=== PATIENT | male | born 1995 | race Caucasian/White ===

== ENCOUNTER 2017-08-27 14:05 | Observation (INO) | payer MEDICAID, OTHER ==
[2017-08-27] MEDS ORDERED: NS 0.9% 1000 ML* 1,000 ML IV ONE (14:12)
[2017-08-27] MEDS ORDERED: Multivitamins/Minerals TAB PO ONE (14:12)
[2017-08-27 15:12] LABS: ABS Basophils 0 10^3/ul (0-0.2); ABS Eosinophils 0.6 10^3/ul (0-0.6); ABS Lymphocytes 2.3 10^3/ul (1.0-4.8); ABS Monocytes 1.1 10^3/ul (0-0.8); ABS Neutrophils 5.7 10^3/ul (1.5-7.7); ABS Nucleated RBC 0.01 10^3/ul; Eosinophil % 6.4 % (0-6); Hematocrit 45 % (42-52); Hemoglobin 16.6 g/dl (14.0-18.0); Lymphocyte % 23.8 % (25-47); Mean Corpuscular HGB Conc 37 g/dl (31-36); Mean Corpuscular Hemoglobin 33 pg (27-31); Mean Corpuscular Volume 88 fL (80-94); Mean Platelet Volume 8 um3 (7.4-10.4); Nucleated Red Blood Cells % 0.1; Platelet Count 271 10^3/ul (150-450); Red Blood Count 5.12 10^6/ul (4.0-5.4); Red Cell Distribution Width 13 % (10.5-15); White Blood Count 9.8 10^3/ul (3.5-10.8)
[2017-08-27 15:22] LABS: EGFR Non-African American 84.9 (>60)
[2017-08-27] MEDS ORDERED: Potassium Chlor TAB* 20 MEQ TAB.ER PO ONE (15:43)
[2017-08-27] MEDS ORDERED: Magnesium Chloride EC TAB* 64 MG PO ONE (15:44)
[2017-08-27] MEDS ORDERED: POTASSIUM CHLORIDE IVPB SCH (16:00)
[2017-08-27] MEDS ORDERED: POTASSIUM CHLORIDE IVPB ONE (16:00)
[2017-08-27] MEDS ORDERED: NS 0.9% IVPB ONE (16:00)
[2017-08-27] MEDS ORDERED: NS 0.9% IVPB SCH (16:00)
[2017-08-27] MEDS ORDERED: KCL 20 MEQ/100 ML IVPREMIX* 20 MEQ/100 ML BAG IV SCH (16:00)
--- NOTE | 2017-08-27 16:43 | ED ---
Yoselin Castro Gabriel, scribed for Brandon Garrido MD on 08/27/17 at 1427 . Palpitations / Dysrhythmia - HPI Summary HPI Summary: This patient is a 22 year old M BIBA to [facility] with a chief complaint of palpitations/CP since a month ago. Symptoms aggravated by exertion. Patient lives [facility] and was sent for palpitations today after they discovered he is also bulimic. He induces vomiting after every meal and has been doing it for years. He has been hospitalized previously for low electrolytes due to the constant vomiting. He was placed in [facility] for alcohol abuse and heroin abuse but has been sober for 3 months. - History of Current Complaint Time Seen by Provider: 08/27/17 14:10 Onset/Duration: Lasting Weeks - 4, Still Present Timing: Intermittent Episodes Lasting: Severity Initially: Mild Severity Currently: None Character: Irregular, Skipped Beats Aggravating: Exertion Alleviating: Rest Associated Signs & Symptoms: Chest Pain - Allergy/Home Medications Allergies/Adverse Reactions: Allergies Allergy/AdvReac Type Severity Reaction Status Date / Time No Known Allergies Allergy Verified 01/03/13 08:07 Home Medications: Home Medications Acetaminophen TAB* [Tylenol TAB*] 325 - 650 mg PO Q6H PRN 08/27/17 [History Confirmed 08/27/17] Aspirin TAB* [Aspirin 325 MG TAB*] 325 mg PO DAILY PRN 08/27/17 [History Confirmed 08/27/17] Bismuth Subsalicylate [Peptic Relief] 262 mg PO .[id number] MDD 8 tablets [History Confirmed 08/27/17] Calcium Carbonate CHEW TAB* [Tums*] 500 - 1,000 mg PO DAILY PRN MDD 8 tablets [History Confirmed 08/27/17] Docusate CAP* [Colace Cap*] 100 mg PO BID PRN 08/27/17 [History Confirmed ] Guaifenesin 400 - 800 mg PO Q12HR PRN 08/27/17 [History Confirmed 08/27/17] Ibuprofen TAB* [Advil TAB*] 200 mg PO Q6H PRN 08/27/17 [History Confirmed ] Magnesium Hydroxide LIQ* [Milk of Magnesia LIQ*] 30 ml PO DAILY PRN 08/27/17 [ History Confirmed 08/27/17] Melatonin (NF) 5 mg PO BEDTIME PRN 08/27/17 [History Confirmed 08/27/17] Multivitamins/Minerals TAB* [Theragran/minerals TAB*] 1 tab PO DAILY PRN [History Confirmed 08/27/17] Nicotine Lozenge* 1 mg MT TID PRN 08/27/17 [History Confirmed 08/27/17] Polyethylene Glycol 3350* [Miralax*] 17 gm PO DAILY PRN 08/27/17 [History Confirmed 08/27/17] diPHENhydraMINE PO* [Benadryl PO 25 MG TAB*] 25 - 50 mg PO .Q4-6H PRN 08/27/17 [ History Confirmed 08/27/17] PMH/Surg Hx/FS Hx/Imm Hx Previously Healthy: No Endocrine/Hematology History: Denies: Hx Diabetes Cardiovascular History: Denies: Hx Hypertension Respiratory History: Denies: Hx Asthma GI History: Reports: Other GI Disorders - bulimia Opthamlomology History: Denies: Hx Cataracts, Hx Contacts or Glasses, Hx Eye Injury, Hx Legally Blind EENT History: Denies: Hx Deafness, Hx Hearing Problem Neurological History: Denies: Hx Transient Ischemic Attacks (TIA) Psychiatric History: Denies: Hx of Violent Episodes Against Others - denies - Surgical History Surgery Procedure, Year, and Place: tonsillectomy 1996 - Family History Known Family History: Negative: Cardiac Disease, Hypertension, Diabetes, Seizure Disorder, Blood Disorder - Social History Lives: [facility] Alcohol Use: None Alcohol Amount: released from detox on Friday Hx Substance Use: Yes Substance Use Type: Reports: Heroin, Marijuana Smoking Status (MU): Smoker, Current Status Unknown Review of Systems Positive: Palpitations, Chest Pain Positive: Other - bulimic Negative: Slurred Speech All Other Systems Reviewed And Are Negative: Yes Physical Exam - Summary Physical Exam Summary: Appearance: Well appearing, no pain distress Skin: warm, dry, reflects adequate perfusion Head/face: normal Eyes: EOMI, GLENN ENT: normal Mucous membranes moist, no thyromegaly Neck: supple, non-tender Respiratory: CTA, breath sounds present Cardiovascular: RRR, pulses symmetrical Abdomen: non-tender, soft Bowel: present Musculoskeletal: normal, strength/ROM intact, Scars on both upper extremities Neuro: normal, sensory motor intact, A&Ox3 Triage Information Reviewed: Yes Vital Signs On Initial Exam: Initial Vitals BP 118/62 08/27/17 14:14 Vital Signs Reviewed: Yes Procedures - Procedure Summary Procedure Summary: Insertion of Right External Jugular IV: I placed a R EJ 20g angiocatheter after peripheral access was difficult due to IV drug use hx. Single attempt with pt in Trendelenberg position. Flush/jose armando easily. Secured with Tegaderm. Luzma well without complications. Diagnostics - Vital Signs Vital Signs Temp Pulse Resp BP Pulse Ox 08/27/17 16:30 81 14 131/74 98 08/27/17 16:00 14 08/27/17 15:30 117/68 08/27/17 15:00 79 12 95 08/27/17 14:30 80 16 127/71 99 08/27/17 14:19 37.2 C 79 18 118/62 97 08/27/17 14:15 6 08/27/17 14:14 118/62 - Laboratory Lab Results: Lab Results 08/27/17 08/27/17 Range/Units 14:53 14:53 WBC 9.8 (3.5-10.8) 10^3/ul RBC 5.12 (4.0-5.4) 10^6/ul Hgb 16.6 (14.0-18.0) g/dl Hct 45 (42-52) % MCV 88 (80-94) fL MCH 33 H (27-31) pg MCHC 37 H (31-36) g/dl RDW 13 (10.5-15) % Plt Count 271 (150-450) 10^3/ul MPV 8 (7.4-10.4) um3 Neut % (Auto) 57.7 (38-83) % Lymph % (Auto) 23.8 L (25-47) % Dunn % (Auto) 11.7 H (1-9) % Eos % (Auto) 6.4 H (0-6) % Baso % (Auto) 0.4 (0-2) % Absolute Neuts (auto) 5.7 (1.5-7.7) 10^3/ul Absolute Lymphs (auto) 2.3 (1.0-4.8) 10^3/ul Absolute Monos (auto) 1.1 H (0-0.8) 10^3/ul Absolute Eos (auto) 0.6 (0-0.6) 10^3/ul Absolute Basos (auto) 0 (0-0.2) 10^3/ul Absolute Nucleated RBC 0.01 10^3/ul Nucleated RBC % 0.1 Sodium 125 L (133-145) mmol/L Potassium 1.9 L* (3.5-5.0) mmol/L Chloride 68 L (101-111) mmol/L Carbon Dioxide 45 H* (22-32) mmol/L Anion Gap 12 H (2-11) mmol/L BUN 21 (6-24) mg/dL Creatinine 1.07 (0.67-1.17) mg/dL Est GFR ( Amer) 109.2 (>60) Est GFR (Non-Af Amer) 84.9 (>60) BUN/Creatinine Ratio 19.6 (8-20) Glucose 125 H (70-100) mg/dL Calcium 9.8 (8.6-10.3) mg/dL Phosphorus 2.8 (2.5-5.0) mg/dL Magnesium 2.2 (1.9-2.7) mg/dL Total Bilirubin 0.80 (0.2-1.0) mg/dL AST 36 (13-39) U/L ALT 21 (7-52) U/L Alkaline Phosphatase 103 (34-104) U/L Total Protein 7.5 (6.4-8.9) g/dL Albumin 4.4 (3.2-5.2) g/dL Globulin 3.1 (2-4) g/dL Albumin/Globulin Ratio 1.4 (1-3) TSH 0.49 (0.34-5.60) mcIU/mL Result Diagrams: 08/27/17 14:53 08/27/17 14:53 Lab Statement: Any lab studies that have been ordered have been reviewed, and results considered in the medical decision making process. - EKG 1554 Cardiac Rate: NL EKG Rhythm: Sinus Rhythm - at 88 BPM EKG Interpretation: No U waves, prolonged QTc 585 ms, RAD Course/Dx - Course Course Of Treatment: Bulemic with chronic induced vomiting. K+ now critically low. Replace orally and IV. No U waves on EKG. Pt at risk for weakness/ paralysis at this level. Known drug user, placed IV in R EJ for access. Admit for further. - Diagnoses Differential Diagnosis/HQI/PQRI: Positive: Hypokalemia Provider Diagnoses: Bulimia, Palpitations, Hypokalemia, gastrointestinal losses - Critical Care Time Critical Care Time: 30-74 min - CCT is exclusive of separately billable procedures Discharge - Discharge Plan Condition: Fair Disposition: ADMITTED TO [facility] Referrals: No Primary Care Phys,NOPCP [Primary Care Provider] - The documentation as recorded by the Yoselin almeida Gabriel accurately reflects the service I personally performed and the decisions made by , Brandon Garrido MD.
[2017-08-27] MEDS ORDERED: Acetaminophen TAB* 325 MG PO PRN (18:17)
--- NOTE | 2017-08-27 21:38 | HP ---
ADMISSION HISTORY AND PHYSICAL: DATE OF ADMISSION: 08/27/17 ATTENDING PHYSICIAN: Dr. Alexander Talamantes * (DICTATED BY JARAD FISHMAN NP) PRIMARY CARE PHYSICIAN: None. HISTORY OF PRESENT ILLNESS: This is a 22-year-old male patient who presented with a complaint of palpitations via EMS from his [facility] program. The patient states he has had on and off palpitations and chest pain approximately for one month. He is admitted to active bulimia and induced vomiting after every meal. This has been an ongoing problem for him for many years. The patient has been sober for 3 months and has been in his [facility] program for the last 30 days. He has not had any issues, however, he has not confided in his counsellor about his active bulimia issues again, however, he states that he thinks that his counsellor is aware, that people have been telling him that he has been vomiting , but this problem has not been addressed in his treatment at this point. The patient also states that he has had previous hospitalizations for low electrolytes and other gastric issues secondary to his bulimia. Again, the patient has been in [facility] for a month. PAST MEDICAL HISTORY: His past medical history includes polysubstance abuse including alcohol and heroin abuse, however, has been sober for some 90 days now. PAST SURGICAL HISTORY: Tonsillectomy in 1996. ALLERGIES: No known drug allergies. MEDICATIONS: At home, the patient states he does not take any medications on a daily basis, however, his report from [facility] states: 1. Tylenol as needed. 2. Aspirin 325 mg daily. 3. Pepto-Bismol as needed. 4. Calcium carbonate as needed. 5. Docusate caps as needed. 6. Guaifenesin 400 to 800 mg q.12 hours as needed. 7. Ibuprofen as needed. 8. Milk of magnesia as needed. 9. Melatonin p.o. q.h.s. as needed. 10. Multivitamin 1 tablet daily, this he does confirm he takes. 11. Nicotine lozenge 1 tablet 3 times a day as needed. 12. MiraLAX as needed. 13. Benadryl also as needed. SOCIAL HISTORY: Tobacco abuse, heroin abuse, and alcohol abuse. FAMILY HISTORY: Noncontributory. PSYCHIATRIC HISTORY: Active bulimia, probably some comorbid depression, although this is not currently corroborated. Again, living in a [facility] in [facility] program. REVIEW OF SYSTEMS: The patient denies any fever, fatigue, or chills. No headache, no dizziness, no chest pains. He has active palpitations that are intermittent in nature, currently resolved since coming into the ER. No shortness of breath. No nausea, no current vomiting. No urinary complaints. No issues with diarrhea or constipation. No arthralgias or myalgias. No neurologic complaints. PHYSICAL EXAMINATION GENERAL: The patient is awake and alert, in no acute distress. VITAL SIGNS: Currently, temperature 98.6, heart rate 85, respiratory rate 12, sating 100% on room air, blood pressure is 130/68. HEENT: The patient is atraumatic and normocephalic. PERRLA with non-icteric sclerae. NECK: Supple, nontender. No JVD noted. No carotid bruit auscultated. He has a right IJ inserted with Tegaderm dressing. No erythema or bleeding noted. Site is clean, dry, and intact. LUNGS: Clear bilaterally to auscultation with no wheezing, rhonchi, or rales. CARDIOVASCULAR: S1 and S2 are present. No murmurs, gallops, or rubs appreciated. Rate and rhythm are regular. He is regular on telemetry with no ectopy noted. ABDOMEN: Soft, nontender, and nondistended. He has positive bowel sounds in all 4 quadrants. No abdominal mass noted and no bruits auscultated. : Deferred. MUSCULOSKELETAL: There is no clubbing, no cyanosis, and no edema. He has +2 distal pulses palpable. Gross motor and sensation are intact. NEUROLOGIC: Is also grossly intact. There are no focal deficits. PSYCHIATRIC: He is cooperative and appropriate. DIAGNOSTIC STUDIES/LAB DATA: Laboratories at admission, WBCs 9.8, RBCs 5.12, hemoglobin 16.6, hematocrit 45, MCV 88, MCH 33, MCHC 37. Chemistries show sodium 125, potassium 1.9, chloride 68, carbon dioxide 45, anion gap is 12, BUN 21, creatinine 1.07. GFR 84.9, BUN to creatinine ratio 19.6, glucose 125, calcium 9.8, phosphorus 2.8, magnesium 2.2, bilirubin 0.8, AST 36, ALT 21, alk phos 103, total protein 7.5, albumin 4.4, globulin 3.1 and TSH is 0.49. ASSESSMENT/PLAN: This is a 22-year-old male patient with a history of polysubstance abuse, also has an ongoing issue with chronic bulimia. He was still actively inducing vomiting with every meal per the patient's report who now has a critically low potassium level. The patient was counseled at length about the critical nature of his electrolyte imbalance. His EKG was evaluated. There are no U waves and no critical changes on EKG, however, he is at risk for paralysis and continued arrhythmias. The patient is agreeable to inpatient admission. He has been admitted to telemetry. 1. Hypokalemia, profound. 2. Bulimia ongoing. 3. History of polysubstance abuse. 4. Palpitations and cardiac irregularities. The patient has already received repletion of potassium in the ER. He has gotten Slow-Mag 64 mg in the ED, K-Halie 40 mEq. He has normal saline with 60 mEq of potassium infusing at 50 mL per hour. We will recheck his K and magnesium levels in the morning. The patient is currently in regular rate and rhythm on telemetry, again, with no ectopy at this point. He will remain on tele. I have also consulted Nutrition and Psychiatry to see the patient. Again , had a lengthy discussion with the patient about his bulimia. The patient is concerned that he will not be able to stay at [facility], if he needs to be treated for his bulimia, but he also understands the grave nature of his critically low potassium and is agreeable to see a knot borer, psychiatrist, social work to help get him into a program for his eating disorder and he is amenable to that plan while he is here, trying to get his electrolytes in order , and avoid potential cardiac arrhythmia and potentially even . The patient has contracted for safety and has agreed not to induce vomiting while he is here. He does have a bed alarm on and has also agreed that if he feels like he does want to make himself vomit, he has told me he will reach out to staff and ask for help. The patient will remain inpatient until his electrolytes have returned to baseline and we have a safe plan of discharge and an outpatient plan of care for him. At that time, we will discuss what his future plans will be. Rest of the patient's course will be determined with further diagnostics, laboratories and the other inputs from other providers as warranted during this admission. I discussed this plan with Dr. Talamantes; he is in agreement with this plan of care. Also of note, the patient does not have a primary care physician, we will refer him for a PCP at the time of discharge. JARAD FISHMAN, WINDOWS ADMIN [id number]/[facility] #: [id number] [facility] CENTERMarisol
[2017-08-27] MEDS: CMCS: Melatonin (NF) 3 MG TAB PO SCH (22:32)
[2017-08-28 06:07] LABS: ABS Basophils 0.1 10^3/ul (0-0.2); ABS Eosinophils 0.9 10^3/ul (0-0.6); ABS Neutrophils 5.6 10^3/ul (1.5-7.7); ABS Nucleated RBC 0.01 10^3/ul; Hematocrit 38 % (42-52); Hemoglobin 13.6 g/dl (14.0-18.0); Lymphocyte % 34.5 % (25-47); Mean Corpuscular HGB Conc 36 g/dl (31-36); Mean Corpuscular Hemoglobin 32 pg (27-31); Mean Corpuscular Volume 89 fL (80-94); Mean Platelet Volume 8 um3 (7.4-10.4); Nucleated Red Blood Cells % 0; Platelet Count 249 10^3/ul (150-450); Red Blood Count 4.25 10^6/ul (4.0-5.4); Red Cell Distribution Width 13 % (10.5-15); White Blood Count 11.5 10^3/ul (3.5-10.8)
[2017-08-28 06:17] LABS: EGFR Non-African American 74.4 (>60)
[2017-08-28] MEDS: Multivitamins/Minerals TAB PO SCH (08:06)
[2017-08-28] MEDS: Potassium Chlor TAB* 20 MEQ TAB.ER PO SCH ×3 (09:51→17:10)
[2017-08-28] MEDS: NS 0.9% w/ 40 Meq KCL 1000 ML* 1,000 ML IV SCH (09:53)
--- NOTE | 2017-08-28 16:00 | CONS ---
PSYCHIATRY CONSULTATION DATE OF ADMISSION: 08/27/2017. DATE OF CONSULTATION: 08/28/2017. ATTENDING PHYSICIAN: Nurse practitioner Mayuri Doyle. CONSULTING PHYSICIAN: Dr. Rahat Sood. REASON FOR CONSULT: Electrolyte disturbance associated with bulimia nervosa. SUBJECTIVE HISTORY: The patient is a 22-year-old, single, white male with a history of alcohol and benzodiazepine use disorder who was brought to the emergency room from his [facility] inpatient substance abuse facility due to complaints of palpitations, who was later discovered to be severely hypokalemic secondary to voluntary auto emesis. Apparently, the patient has been inducing vomiting after meals for several years. He has currently been sober for the past haset-poc-b-half months due to treatment on the inpatient [facility] program; however, the issue of bulimia has not been addressed in his treatment up to this point. The patient did indicate that he has had previous medical hospitalizations for low electrolytes and other gastric issues secondary to bulimic behaviors. When I spoke with the patient, he indicates that his tendencies to induce vomiting began approximately nine years ago. Initially, it was a way for him to drink more alcohol, but gradually he started doing it with food as well. He describes these behaviors as automatic and natural to him. On one hand, he knows cognitively that they are wrong and yet he cannot stop himself. He does also endorse some body image issues, stating " I think I look fat and gross." I asked about exercise, but he does not tend to overly exercise. I asked the patient about symptoms of depression, psychosis and marcin, all of which he currently denies. I also spoke with his father, Marino Diez, who indicates his understanding that the patient has been sober for three -and-a-half months. He has been in [facility] for about a month, but was incarcerated in the [facility] prior to this. He notes that his son has had approximately seven total visits for medical stabilization of electrolyte disturbances. The most recent was in [place]. There were also two in [place], [place] and two in [place], [place]. The patient' s father is aware that the patient has a history of chronic self-harm in the form of cutting, over imbibing in alcohol, and purging his meals. PAST PSYCHIATRIC HISTORY: The patient has never been to an eating disorder program, most likely due to the fact that he has always had comorbid substance abuse issues that seemed a higher priority in his treatment. He has never been psychiatrically hospitalized. He has seen a number of counselors and therapists , but mostly through substance abuse programs. As a child, he was diagnosed with both Tourette's and ADHD. His father indicates that trials of Ritalin and Adderall resulted in paradoxical reactions in which he became more hyperactive. The patient tells me that he was on Citalopram as a teenager and that this was quite helpful, although he is reluctant to take it currently. The patient does not endorse any prior suicide attempts, although he has burned himself and cut himself in the past, the last being approximately three months ago. He denies any history of abuse or neglect growing up. SUBSTANCE ABUSE HISTORY: The patient has been abusing alcohol since the age of 11. He has been to several rehabs in such facilities as [facility], [facility], and [facility]. He last used Xanax approximately cewlm-plx-h-half months ago and also used cannabis around the same time. On two different occasions he tried heroin with his ex- girlfriend who was a heroin addict, but he does not tend to abuse opioids. He did have one DWI ten months ago and then missed several court dates. PAST MEDICAL HISTORY: Significant for multiple hospitalizations for electrolyte disturbance in the setting of auto emesis. FAMILY HISTORY: Significant for depression and suicide in several paternal great uncles. SOCIAL HISTORY: The patient was born and raised in a suburb of [place] to an intact family. He has one brother who is age 19. The patient graduated from a private high school and did two semesters at [employer] before being kicked out for drinking excessively. He is currently single and self- identifies as heterosexual. He is not currently sexually active and has no known sexually transmitted diseases. The patient is neither evangelical nor spiritual. He has never been in the . He does have a legal history of two months of recent fdc time in [facility] in the fall of 2016 after missing several court dates. He apparently tried to steal from a convenience store from whence the responding police officers discovered that there was an active warrant for his arrest. In addition, in 2012 he was arrested for aggravated assault after kicking out the passenger side window of his girlfriend 's moving vehicle. MENTAL STATUS EXAM: The patient is a young, seemingly well-built, white male who does not appear to be obese or greatly overweight. He is calm and cooperative. Makes good eye contact. Speech has a normal rate, tone and volume. Mood is euthymic with a full affect. Thought process is linear and goal directed. Thought content is significant for his desire to receive treatment for his eating disorder. He denies suicidal or homicidal ideations. He denies auditory or visual hallucinations. Insight and judgment are fair given his willingness to follow-up with an eating disorders program. Cognitively , he is awake and alert with what would appear to be an average intellect. DIAGNOSES: AXIS I: Bulimia nervosa; alcohol use disorder; cannabis use disorder; benzodiazepine use disorder. AXIS II: Borderline personality traits. ASSESSMENT: The patient is a 22-year-old, single, white male with a history of polysubstance abuse and bulimia nervosa who was sent to the emergency room from the [facility] inpatient residential treatment facility where he was demonstrating somatic symptoms attributable to extremely low potassium in the setting of auto induced emesis. At this time, he is recognizing that bulimia is a problem. He is currently mrhib-nyu-q-half months sober which is according to him the longest period of sobriety that he has had in close to five years. Given the fact that ongoing substance abuse issues have interfered with his ability to receive definitive care for his eating disorder in the past. He is agreeable with referral to a behavioral health unit that can manage this problem. I was able to speak with Mayuri Casarez at [facility] who indicates that they have already faxed his referral information to a dual diagnoses inpatient program in [place], [place] and they are awaiting acceptance so that he can be transferred there. The patient is agreeable with this. It is notable that I do offer him a trial of Citalopram given the fact that this has worked in the past and would be indicated certainly for bulimia. He is curious about this option, but wants to wait until he gets to an eating disorders program, which is understandable. RECOMMENDATIONS TO PRIMARY TEAM: The patient is not a risk to himself as long as his electrolyte issues can be corrected. [facility] is now fully aware of this issue and they will put behavioral modifications in place at their facility to ensure no further auto emesis. It is their responsibility at this point to have him transferred to a more definitive mental health inpatient treatment facility and they are already looking at [facility] as a potential source for further care. Psychiatry will continue to follow the patient until he is discharge. Thank you for the interesting consult. [id number]/[facility] #: [id number] [facility]
--- NOTE | 2017-08-28 16:52 | PN ---
Subjective Date of Service: 08/28/17 Interval History: Patient seen and examined. C/O right sided facial swelling and redness. Appears that his EJ infiltrated. RN made aware and line removed. No pain, feels tight and hot per patient. Otherwise no complaints. No vomiting since admission. tolerating potassium supplements without issue. Objective Active Medications: Acetaminophen (Tylenol Tab*) 650 mg PO Q6H PRN PRN Reason: FEVER/HEADACHE Potassium Chloride/Sodium Chloride (Ns 0.9% W/ 40 Meq Kcl 1000 Ml*) 1,000 mls @ 75 mls/hr IV PER RATE [facility] Last Admin: 08/28/17 09:53 Dose: 75 mls/hr Melatonin (Melatonin (Nf)) 3 mg PO BEDTIME [facility] Last Admin: 08/27/17 22:32 Dose: 3 mg Multivitamins/Minerals (Theragran/Minerals Tab*) 1 tab PO DAILY [facility] Last Admin: 08/28/17 08:06 Dose: 1 tab Vital Signs - 8 hr 08/28/17 11:05 Temperature 98.1 F Pulse Rate 82 Respiratory 16 Rate Blood Pressure 116/53 (mmHg) O2 Sat by Pulse 100 Oximetry Oxygen Devices in Use Now: None Appearance: Alert, NAD Eyes: No Scleral Icterus, PERRLA Ears/Nose/Mouth/Throat: NL Teeth, Lips, Gums, Mucous Membranes Moist - right side facial swelling and warmth Neck: Trachea Midline Respiratory: Symmetrical Chest Expansion and Respiratory Effort, Clear to Auscultation Cardiovascular: NL Sounds; No Murmurs; No JVD, RRR Abdominal: NL Sounds; No Tenderness; No Distention Extremities: No Edema, No Clubbing, Cyanosis Skin: No Rash or Ulcers Neurological: Alert and Oriented x 3, NL Gait, NL Muscle Strength and Tone Result Diagrams: 08/28/17 05:39 08/28/17 05:39 Additional Lab and Data: Lab Results 08/27/17 08/27/17 Range/Units 14:53 14:53 WBC 9.8 (3.5-10.8) 10^3/ul RBC 5.12 (4.0-5.4) 10^6/ul Hgb 16.6 (14.0-18.0) g/dl Hct 45 (42-52) % MCV 88 (80-94) fL MCH 33 H (27-31) pg MCHC 37 H (31-36) g/dl RDW 13 (10.5-15) % Plt Count 271 (150-450) 10^3/ul MPV 8 (7.4-10.4) um3 Neut % (Auto) 57.7 (38-83) % Lymph % (Auto) 23.8 L (25-47) % [place] % (Auto) 11.7 H (1-9) % Eos % (Auto) 6.4 H (0-6) % Baso % (Auto) 0.4 (0-2) % Absolute Neuts (auto) 5.7 (1.5-7.7) 10^3/ul Absolute Lymphs (auto) 2.3 (1.0-4.8) 10^3/ul Absolute Monos (auto) 1.1 H (0-0.8) 10^3/ul Absolute Eos (auto) 0.6 (0-0.6) 10^3/ul Absolute Basos (auto) 0 (0-0.2) 10^3/ul Absolute Nucleated RBC 0.01 10^3/ul Nucleated RBC % 0.1 Sodium 125 L (133-145) mmol/L Potassium 1.9 L* (3.5-5.0) mmol/L Chloride 68 L (101-111) mmol/L Carbon Dioxide 45 H* (22-32) mmol/L Anion Gap 12 H (2-11) mmol/L BUN 21 (6-24) mg/dL Creatinine 1.07 (0.67-1.17) mg/dL Est GFR ( Amer) 109.2 (>60) Est GFR (Non-Af Amer) 84.9 (>60) BUN/Creatinine Ratio 19.6 (8-20) Glucose 125 H (70-100) mg/dL Calcium 9.8 (8.6-10.3) mg/dL Phosphorus 2.8 (2.5-5.0) mg/dL Magnesium 2.2 (1.9-2.7) mg/dL Total Bilirubin 0.80 (0.2-1.0) mg/dL AST 36 (13-39) U/L ALT 21 (7-52) U/L Alkaline Phosphatase 103 (34-104) U/L Total Protein 7.5 (6.4-8.9) g/dL Albumin 4.4 (3.2-5.2) g/dL Globulin 3.1 (2-4) g/dL Albumin/Globulin Ratio 1.4 (1-3) TSH 0.49 (0.34-5.60) mcIU/mL Assess/Plan/Problems-Billing Assessment: This is a 22 year old young man with h/o polysubstance abuse and now with palpitations with profound hypokalemia 2/2 bulimia. - Patient Problems (1) Hypokalemia due to loss of potassium Code(s): E87.6 - HYPOKALEMIA SNOMED Code(s): 75761666 Comment: - Continue repletion with PO and IV - Follow lytes and mag - Will treat to slightly overcorrect K level before DC back to [facility] (goal>4.5) in case patient starts to induce vomiting again before being transferred to new program (2) Bulimia nervosa, extreme Code(s): F50.2 - BULIMIA NERVOSA SNOMED Code(s): 04724763 Comment: - Psych and nutrition consults appreciated - Plan for DC back to [facility] then transition to dual diagnosis program in [place] - Contract for safety, follow diet, bed alarm in place (3) Polysubstance abuse Code(s): F19.10 - OTHER PSYCHOACTIVE SUBSTANCE ABUSE, UNCOMPLICATED SNOMED Code(s): 763297117 Comment: - Sober 90 days - Plan to DC back to [facility] (4) Intermittent palpitations Code(s): R00.2 - PALPITATIONS SNOMED Code(s): 384427265 Comment: - Palpitations now resolved - No ectopy on telemetry (5) IV infiltrate Code(s): T80.1XXA - VASCULAR COMP FOL INFUSN, TRANFS AND THERAPUTC INJECT, INIT SNOMED Code(s): 14150966 Comment: - EJ removed - cold packs - supportive care - Monitor edema Status and Disposition: Remain inpatient for telemetery monitoring and K repletion. May be stable for DC in AM Counseling and/or Coordination of Care Minutes: Coordinated with Dr. Sood.
[2017-08-28] MEDS: CMCS: Melatonin (NF) 3 MG TAB PO SCH (20:38)
[2017-08-29] MEDS: NS 0.9% w/ 40 Meq KCL 1000 ML* 1,000 ML IV SCH ×2 (00:02→14:22)
[2017-08-29 06:02] LABS: ABS Basophils 0 10^3/ul (0-0.2); ABS Lymphocytes 4.3 10^3/ul (1.0-4.8); ABS Monocytes 0.9 10^3/ul (0-0.8); ABS Neutrophils 5.5 10^3/ul (1.5-7.7); ABS Nucleated RBC 0.02 10^3/ul; Eosinophil % 8.7 % (0-6); Hematocrit 37 % (42-52); Hemoglobin 12.9 g/dl (14.0-18.0); Lymphocyte % 36.5 % (25-47); Mean Corpuscular HGB Conc 35 g/dl (31-36); Mean Corpuscular Hemoglobin 32 pg (27-31); Mean Corpuscular Volume 91 fL (80-94); Mean Platelet Volume 9 um3 (7.4-10.4); Nucleated Red Blood Cells % 0.2; Platelet Count 215 10^3/ul (150-450); Red Blood Count 4.02 10^6/ul (4.0-5.4); Red Cell Distribution Width 13 % (10.5-15); White Blood Count 11.7 10^3/ul (3.5-10.8)
[2017-08-29 06:16] LABS: EGFR Non-African American 145.7 (>60)
[2017-08-29] MEDS ORDERED: Magnesium Chloride EC TAB* 64 MG PO ONE (09:03)
[2017-08-29] MEDS: Multivitamins/Minerals TAB PO SCH (10:27)
[2017-08-29] MEDS: Potassium Chlor TAB* 20 MEQ TAB.ER PO SCH ×2 (10:27→14:23)
--- NOTE | 2017-08-29 14:05 | CONSULT ---
Identification - Patient Identification Reason for Psychiatric Consultation: Incapacitating Symptoms -: Patient is a 22 year old, M admitted on 08/27/17. - MHU Identification Employment Status: Unemployed Hx Psychiatric Hospitalization: No History - Objective HPI: Waqar is feeling better today, eating a full meal for his lunch and sitting up in bed, talking to a friend on his phone. He denies binging/purging behaviors since hospitalized. "I'm definitely sick of institutions and being hospitalized. I'm ready to move forward." He continues to deny SI or HI. There is uncertainty about what particular inpatient psychiatric or eating disorder-specific facility he will be transferred to, but he still endorses willingness to engage in inpatient treatment for his bulimia condition. Lab Results: Laboratory Tests 08/28/17 08/28/17 08/29/17 05:39 05:39 05:26 WBC 11.5 H 11.7 H RBC 4.25 4.02 Hgb 13.6 L 12.9 L Hct 38 L 37 L MCV 89 91 MCH 32 H 32 H MCHC 36 35 RDW 13 13 Plt Count 249 215 MPV 8 9 Neut % (Auto) 48.4 47.0 Lymph % (Auto) 34.5 36.5 [place] % (Auto) 8.6 7.4 Eos % (Auto) 8.0 H 8.7 H Baso % (Auto) 0.5 0.4 Absolute Neuts (auto) 5.6 5.5 Absolute Lymphs (auto) 4.0 4.3 Absolute Monos (auto) 1.0 H 0.9 H Absolute Eos (auto) 0.9 H 1.0 H Absolute Basos (auto) 0.1 0 Absolute Nucleated RBC 0.01 0.02 Nucleated RBC % 0 0.2 Sodium 131 L Potassium 2.3 L* Chloride 85 L Carbon Dioxide 39 H Anion Gap 7 BUN 26 H Creatinine 1.20 H Est GFR ( Amer) 95.7 Est GFR (Non-Af Amer) 74.4 BUN/Creatinine Ratio 21.7 H Glucose 108 H Calcium 8.7 Magnesium 1.9 Total Bilirubin 0.50 AST 25 ALT 17 Alkaline Phosphatase 78 Total Protein 6.0 L Albumin 3.6 Globulin 2.4 Albumin/Globulin Ratio 1.5 08/29/17 05:26 WBC RBC Hgb Hct MCV MCH MCHC RDW Plt Count MPV Neut % (Auto) Lymph % (Auto) [place] % (Auto) Eos % (Auto) Baso % (Auto) Absolute Neuts (auto) Absolute Lymphs (auto) Absolute Monos (auto) Absolute Eos (auto) Absolute Basos (auto) Absolute Nucleated RBC Nucleated RBC % Sodium 137 Potassium 3.4 L Chloride 104 Carbon Dioxide 30 Anion Gap 3 BUN 16 Creatinine 0.67 Est GFR ( Amer) 187.4 Est GFR (Non-Af Amer) 145.7 BUN/Creatinine Ratio 23.9 H Glucose 110 H Calcium 8.7 Magnesium Total Bilirubin 0.30 AST 18 ALT 14 Alkaline Phosphatase 65 Total Protein 5.3 L Albumin 3.1 L Globulin 2.2 Albumin/Globulin Ratio 1.4 Exam Appearance: Well Developed/Nourished Hygiene: Normal Grooming: Well Kept Psychomotor Activities: Normal Exhibits Abnormal Movement: No Attitude and Relatedness: Cooperative Eye Contact: Good - Speech Quality: Unpressured Latencies: Normal Quantity: Appropriate Patient's Decription of Mood: "Good" Observed Affect: Good Affect Consistent with: Euthymia Patient's Thought Process: Coherent Thought Content: No Passive Wish, No Suicidal Planning, No Homicidal Ideation, No Paranoid Ideation Experiencing Hallucinations: No, Sensorium is Clear Type of Hallucinations: Visual: No, Auditory: No, Command: No Level of Consciousness: Alert Orientation: Yes Intact, Yes Orientated to Time, Yes Orientated to Place, Yes Orientated to Person Impulse Control: Tenuous Insight and Judgement: Fair Impression - Impression Clinical Impression: 22 y.o. single, white male with a history of alcohol and benzodiazepine use disorders referred from inpatient [facility] due to complaints of palpitations later discovered to have severe hypokalemia secondary to auto-emesis. He meets criteria for bulimia nervosa. Inpatient DSM-IV Dx: Bulimia Nervosa Merits Inpatient Hospitalization: Yes Plan - Treatment Plan Treatment Plan: The patient is improving medically and pending discharge back to [facility], where he is court-mandated to return to. They will then refer him to a specialty inpatient eating disorders program. Psychiatry is signing off. Continued Medication Management: Consider Medication Medications: Current Medications Acetaminophen (Tylenol Tab*) 650 mg PO Q6H PRN PRN Reason: FEVER/HEADACHE Potassium Chloride/Sodium Chloride (Ns 0.9% W/ 40 Meq Kcl 1000 Ml*) 1,000 mls @ 75 mls/hr IV PER RATE [facility] Last Admin: 08/29/17 00:02 Dose: 75 mls/hr Melatonin (Melatonin (Nf)) 3 mg PO BEDTIME [facility] Last Admin: 08/28/17 20:38 Dose: 3 mg Multivitamins/Minerals (Theragran/Minerals Tab*) 1 tab PO DAILY [facility] Last Admin: 08/29/17 10:27 Dose: 1 tab Potassium Chloride (Klor Con Er Tab*) 40 meq PO TID DALILA Stop: 08/30/17 23:59 Last Admin: 08/29/17 10:27 Dose: 40 meq - Discharge Plan Discharge Plan: Drug/Alcohol Rehab
[2017-08-29 15:59] VITALS: BP 116/75
[2017-08-29] MEDS ORDERED: Potassium Chlor TAB* 20 MEQ TAB.ER PO ONE (17:58)
--- NOTE | 2017-08-29 18:01 | PN ---
Hospitalist Progress Note Date of Service: 08/29/17 Per RN, K level is now 3.7. Will give last dose PO potassium now and patient can be DC'd to [facility] after. Patient aware. Rx sent to pharmacy.
--- NOTE | 2017-08-30 03:09 | DS ---
AMENDED REPORT NOW INCLUDES COSIGNER DESIGNATION - ESIGNED BEFORE ADJUSTMENTS CC: DISCHARGE SUMMARY: DATE OF ADMISSION: The patient was admitted through the emergency room on 08/27. DATE OF DISCHARGE: 08/29/17 PRIMARY CARE PHYSICIAN: None. ATTENDING PHYSICIAN DURING HOSPITALIZATION: Dr. Alexander Talamantes * (DICTATED BY JARAD FISHMAN NP) HOSPITAL COURSE: This is a 22-year-old male patient, who was brought in by the [facility] staff for complaint of palpitations, dizziness, and weakness with exertion. The patient states that his symptoms have started a month prior and after having more careful discussion with him about his history and what he was doing at [facility], he admitted that he had been sober for 90 days. He had an alcohol and IV drug abuse problem that the patient also admitted to having a case of bulimia nervosa. The patient has been actively inducing vomiting for the past several months and stated that he had been vomiting after every single meal. He had not been forthcoming with this information to his counselor at the [facility]; however, he started getting sicker and sicker and having more palpitations and chest pain and came to the emergency department after telling his caretakers at [facility] about his issues. He was having some cardiac arrhythmias and some irregular heart rate. During his admission, his EKG showed irregular rate and rhythm. Laboratories at the time of admission showed a critical potassium of 1.9. At that point, it was decided that he should be admitted for potassium repletion, severe hypokalemia, and bulimia. The patient was given potassium repletion over the course of next 48 hours, placed on telemetry monitoring, also was placed on bed alarm, and contracted for safety as the patient would not induce vomiting during his admission. Psychiatric consult was placed. Dr. Sood saw the patient as well as Nutrition. The patient was agreeable to seeing Psychiatry while he was here and was agreeable to discussing additional treatment for his bulimia and leaving the [facility] program and seeking a dual diagnosis program after becoming medically optimized and being ready for discharge after his treatment here. The patient was medically optimized. Potassium today is 3.4. He is having 2 more doses of oral potassium before he leaves and will be discharged on prescription for the same. LABORATORY DATA: Today, showed sodium 137, potassium 3.4, chloride 104, CO2 30 , gap of 3, BUN 16, creatinine 0.67, GFR 145, BUN and creatinine ratio 23.9, glucose 110, calcium 8.7. Total bilirubin 0.3, AST 18, ALT 14, alk phos 65. Total protein 5.3, albumin 3.1, globulin 2.2. WBC is 11.7, RBC is 4.02, hemoglobin 12.9, hematocrit 37, MCV 91, MCH 32, platelets 215. VITAL SIGNS AT THE TIME OF DISCHARGE: Temperature 98.0, heart rate 89, rate and rhythm are regular, respirations 20, O2 saturation 99% on room air, blood pressure 123/61. REVIEW OF SYSTEMS: The patient has no complaints of fever, fatigue, or chills. No palpitations or chest pain or shortness of breath. No nausea, no vomiting. No urinary complaints. No arthralgias or myalgias. No further constitutional complaints. DISCHARGE PHYSICAL EXAMINATION: The patient is awake and alert, in no acute distress. The patient has PERRL with nonicteric sclerae. Neck is supple, nontender. He did have an IV infiltration in the right jaw secondary to an ____ _ that was removed on 08/28/17. There was no erythema. There is some swelling to the area. It is not painful to palpation and there is no warmth or tenderness to the area. Cardiovascular: S1, S2 present, rate and rhythm are regular. No murmurs, gallops, or rubs appreciated. Lungs are clear bilaterally to auscultation with no wheezing, rhonchi, or rales. Abdomen is soft, nontender, and nontender. Positive bowel sounds in all 4 quadrants. is deferred. Musculoskeletal: There is no clubbing, no cyanosis, no edema. Has +2 distal pulses palpable. Gross motor and sensation are intact and he has a steady gait. Neurologic: Grossly intact with no focal deficits. Psychiatric : He is cooperative and appropriate, although I was told by the nursing staff he does appear to be eating more today and appears to be borderline binging with the food. Food intake is being monitored today. The patient was cleared by Psychiatry on 08/29/17 for discharge back to [facility]. Again, he will have a final dose of potassium and redraw his K level at 4 p.m., although, I believe he is stable now and symptom free of his palpitations and he will have potassium supplementation 40 mEq daily, broken up to 2 doses, 20 mEq two times a day. At discharge, the patient was recommended to follow up with dual diagnosis program in [place], [place]. His counselor, Jarad Carballo, at [facility] program , will be following up and sent his referral information over to the program, so [facility] will be coordinating this when that inpatient admission becomes available. The patient was discharged in stable condition today, 08/29/17, to his [facility] program. MEDICATIONS: At the time of discharge include: 1. Potassium 20 mEq b.i.d. 2. Multivitamin 1 tablet daily. Previous home medications: The patient states that he does not take any; however, his medications in the [facility] program came over as Tylenol as needed and stool softeners as needed, multivitamin daily. The patient has no primary care physician. Declined a referral for PCP as he will be out of state shortly thereafter, but it was recommended to the patient that he follows up with a primary care physician and a psychiatrist. At discharge, he also declined an SSRI, which the psychiatrist had recommended he start for his bulimia nervosa, but again, the patient will be following up with his new program. JARAD FISHMAN, LUIS [id number]/[facility] #: [id number] TRUNG
== END 2017-08-29 20:45 | disposition home or self-care (01) ==
LOC: ED 14:05 → MEDTELE 15:53
PROVIDERS: ADMIT Internal Medicine; ATTEND Internal Medicine
DX: E87.6 Hypokalemia (principal); F50.2 Bulimia nervosa; R00.2 Palpitations; R07.9 Chest pain, unspecified; F10.21 Alcohol dependence, in remission; F11.11 Opioid abuse, in remission; R94.31 Abnormal electrocardiogram [ECG] [EKG]; T80.1XXA Vascular complications following infusion, transfusion and therapeutic injection, initial encounter
CPT/HCPCS: 36415; 80053; 83735; 84100; 84132; 84443; 85025; 93005; 96360; 99284; A9270-GY; G0378; J3480